=== PATIENT | female | born 1990 | race Two or more races ===

== ENCOUNTER 2018-06-09 08:09 | Emergency (ER) | payer MEDICAID ==
[~2018-06-09] VITALS: Ht 157.5 cm; Wt 61.0 kg
[2018-06-09] MEDS ORDERED: IBUPROFEN 600MG TABLET PO STA (10:31)
[2018-06-09 11:22] VITALS: BP 137/102
== END 2018-06-09 12:34 | disposition home or self-care (01) ==
LOC: ER 08:09
DX: M25.532 Pain in left wrist (principal); R03.0 Elevated blood-pressure reading, without diagnosis of hypertension; V49.49XA Driver injured in collision with other motor vehicles in traffic accident, initial encounter; Y93.89 Activity, other specified; Y92.410 Unspecified street and highway as the place of occurrence of the external cause
CPT/HCPCS: 73100; 81025; 99284